=== PATIENT | female | born 1935 | race Caucasian/White ===

== ENCOUNTER 2023-03-15 11:03 | Emergency (ER) | payer OTHER, MEDICARE ==
[~2023-03-15] VITALS: Ht 152.4 cm; Wt 50.8 kg
[~2023-03-15 11:03] MED LIST: Percocet 5-3251 EACH PO
[2023-03-15 15:30] VITALS: BP 147/97
[2023-03-15] MEDS ORDERED: Percocet 5-3251 EACH PO (17:59)
== END 2023-03-15 18:36 | disposition home or self-care (01) ==
LOC: ER 11:03
DX: S70.02XA Contusion of left hip, initial encounter (principal); S90.02XA Contusion of left ankle, initial encounter; R53.1 Weakness; W01.10XA Fall on same level from slipping, tripping and stumbling with subsequent striking against unspecified object, initial encounter; Z88.1 Allergy status to other antibiotic agents; Z91.013 Allergy to seafood
CPT/HCPCS: 72192; 73502; 73610; 96374; 96376; 99284-25; A9270; J2270

== ENCOUNTER 2023-03-22 15:52 | Inpatient (IN) | payer MEDICARE, OTHER ==
[~2023-03-22] VITALS: Ht 154.9 cm; Wt 50.8 kg
[2023-03-22 16:45] LABS: BASOPHILS ABSOLUTE AUTO 0.03 K/mm3 (0.00-0.23); BASOPHILS PERCENT AUTO 1 % (0-2); EOSINOPHILS ABSOLUTE AUTO 0.08 K/mm3 (0.00-0.68); EOSINOPHILS PERCENT AUTO 1 % (0-6); Hematocrit 41.7 % (33.0-51.0); IMMATURE GRAN ABSOLUTE AUTO 0.01 K/mm3 (0.00-0.10); IMMATURE GRAN PERCENT AUTO 0 % (0-1); LYMPHOCYTES ABSOLUTE AUTO 0.82 K/mm3 (0.84-5.20); LYMPHOCYTES PERCENT AUTO 14 % (21-46); MONOCYTES ABSOLUTE AUTO 0.53 K/mm3 (0.16-1.47); MONOCYTES PERCENT AUTO 9 % (4-13); Mean Corpuscular HGB 32.5 pg (26.0-34.0); Mean Corpuscular HGB Conc 33.6 g/dL (31.5-36.5); Mean Corpuscular Volume 97 fL (80-100); Mean Platelet Volume 10.7 fL (9.1-12.4); NEUTROPHILS PERCENT AUTO 75 % (41-73); Platelet Count 202 K/mm3 (150-400); RDW Coefficient Variation 11.7 % (11.7-14.2); RDW Standard Deviation 42.4 fL (35.1-46.3); Red Blood Cell Count 4.31 M/mm3 (3.80-5.20); White Blood Cell Count 5.87 K/mm3 (4.00-11.30)
[2023-03-22 17:10] LABS: Bun/Creatinine Ratio 24.4 (12.0-20.0); Calcium, Blood 9.3 mg/dL (8.5-10.1); Creatinine, Blood 0.49 mg/dL (0.40-1.00)
[2023-03-22 17:19] LABS: International Normalized Ratio 0.95
--- NOTE | 2023-03-22 18:58 | NUR ---
SHIFT SUMMARY: ASSUMED CARE OF PATIENT UPON HER ARRIVAL FROM ER AT 1825. TRANSFERRED FROM [facility] TO BED WITH MAX ASSIST. PAIN WELL CONTROLLED AT THIS TIME. ORTHO CONSULT CALLED IN TO DR. DUMONT'S OFFICE. STRICT BEDREST, PUREWICK IN PLACE FOR URINE. SKIN INTACT, SLIGHT BRUISING ON L TROCHANTER. IS AWARE OF NPO STATUS AFTER MN.
[2023-03-22 19:40] VITALS: BP 140/57
[2023-03-23 02:08] VITALS: BP 155/64
--- NOTE | 2023-03-23 04:20 | NUR ---
SHIFT SUMMARY 87 YR F ADMITTED ON 03/22/23 FOR LEFT FEMUR/HIP FX. DNR. PT HAS HAD FAMILY AT BEDSIDE FOR MOST OF THIS SHIFT AND SHE APPEARS TO BE IN GOOD SPIRITS. SHE C/O PAIN @ 7 BUT TOLERATES IT WELL. PAIN MEDS GIVEN PER EMAR. ALEXI IN PLACE AND WORKING WELL. SHE IS SCHEDULED FOR SURGERY THIS A.M. AND HAS BEEN NPO SINCE MIDNIGHT.
--- NOTE | 2023-03-23 05:42 | NUR ---
ASSUMED CARE OF PT @ 0500. PT DX IS L FEMUR FX. PT IS NPO FOR POSSIBLE SURGERY. PT HAS ORTHO CONSULT SCHEDULED FOR TODAY. PT HAS PUREWICK IN PLACE.PT IS CURRENTLY RESTING WITH BED ALARM ON, BED IN LOWEST POSITION, AND CALL LIGHT WIHTIN REACH.
[2023-03-23 07:09] VITALS: BP 150/69
[2023-03-23 16:10] VITALS: BP 110/49
[2023-03-23 16:15] VITALS: BP 135/69
--- NOTE | 2023-03-23 18:37 | NUR ---
SHIFT SUMMARY: PATIENT A&OX4. CALM, PLEASANT AND COOPERATIVE c CARE USES CALL LIGHT APPROPRIATELY AND ABLE TO MAKE NEEDS KNOWN. PATIENT REPORTS PAIN 5-8/10 TO LEFT HIP. MEDICATED X2 c 25 MG OF IV FENTANYL AND 15 MG OF IV TORADOL THIS SHIFT. PATIENT REPORTS GOOD RELIEF. DR. GRIDER (ORTHO SURGEON) CAME IN FOR CONSULT THIS AM AND SPOKE c PATIENT AND FAMILY c THE PLAN OF CARE. PER DR. DUMONT TO HAVE PATIENT NPO AT HI FOR POSSIBLE SURGERY TO L HIP TOMORROW. CONTINENCE OF URINE AND STOOL AND USES BEDPAN T/O SHIFT. VITAL SIGNS REVIEWED. CALL LIGHT IN REACH.
[2023-03-23 19:52] VITALS: BP 136/66
[2023-03-24 03:42] VITALS: BP 149/64
--- NOTE | 2023-03-24 03:51 | NUR ---
SHIFT SUMMARY NOC PT A/O X 4. FORGETFUL AND CONFUSED AT TIMES. PT HAD C/O OF PAIN IN L HIP AND WAS MEDICATED PER EMAR. PT HAS L HIP JAVIER ARTHROPLASTY SURGERY SCHEDULED FOR AFTERNOON TODAY FOR PROTHESIS PLACEMENT. DAUGHTER STAYED NIGHT IN ROOM. PT 2 DAUGHTERS ARE HEALTHCARE POA FOR PT AND WANT TO BE INFORMED OF ANY ADDITIONAL DECESIONS THAT NEED TO BE MADE ON BEHALF OF PT (POA LETTER AND CONTACT INFO ON FRONT OF PT CHART IN BOX). PT HAS BEEN NPO SINCE MIDNIGHT WITH LR INFUSING @ 100 MLS/HR IN PREPARATION FOR SURGICAL PROCEDURE. PUREWICK STILL IN PLACE DRAINING YELLOW URINE TO SUCTION. PT IS CURRENTLY RESTING WITH BED IN LOWEST POSITION, AND CALL LIGHT WITHIN REACH.
[2023-03-24 05:17] LABS: BASOPHILS ABSOLUTE AUTO 0.04 K/mm3 (0.00-0.23); BASOPHILS PERCENT AUTO 1 % (0-2); EOSINOPHILS ABSOLUTE AUTO 0.18 K/mm3 (0.00-0.68); EOSINOPHILS PERCENT AUTO 3 % (0-6); Hematocrit 35.3 % (33.0-51.0); Hemoglobin 11.7 g/dL (11.5-16.0); IMMATURE GRAN ABSOLUTE AUTO 0.01 K/mm3 (0.00-0.10); IMMATURE GRAN PERCENT AUTO 0 % (0-1); LYMPHOCYTES ABSOLUTE AUTO 1.31 K/mm3 (0.84-5.20); LYMPHOCYTES PERCENT AUTO 24 % (21-46); MONOCYTES ABSOLUTE AUTO 0.53 K/mm3 (0.16-1.47); MONOCYTES PERCENT AUTO 10 % (4-13); Mean Corpuscular HGB Conc 33.1 g/dL (31.5-36.5); Mean Corpuscular Volume 96 fL (80-100); Mean Platelet Volume 11.1 fL (9.1-12.4); NEUTROPHILS PERCENT AUTO 61 % (41-73); Platelet Count 210 K/mm3 (150-400); RDW Coefficient Variation 11.8 % (11.7-14.2); RDW Standard Deviation 42.2 fL (35.1-46.3); Red Blood Cell Count 3.66 M/mm3 (3.80-5.20); White Blood Cell Count 5.37 K/mm3 (4.00-11.30)
[2023-03-24 05:37] LABS: Albumin, Blood 2.6 g/dL (3.4-5.0); Anion Gap 1 mmol/L (6-16); Blood Urea Nitrogen 20 mg/dL (8-24); Bun/Creatinine Ratio 39.5 (12.0-20.0); CO2, Blood 29 mmol/L (21-32); Calcium, Blood 8.8 mg/dL (8.5-10.1); Chloride, Blood 109 mmol/L (98-108); Creatinine, Blood 0.51 mg/dL (0.40-1.00); Glomerular Filtration Rate 90 (60-); Glucose, Blood 107 mg/dL (70-99); Phosphorus, Blood 3.1 mg/dL (2.5-4.9); Potassium, Blood 4.1 mmol/L (3.5-5.5); Sodium, Blood 139 mmol/L (136-145)
[2023-03-24 07:23] VITALS: BP 159/54
--- NOTE | 2023-03-24 08:04 | NUR ---
pt laying in bed with family at bedside, a/ox3, pleasant and cooperative with care, follows commands well, denies pain at this time, asked her to let us know if has pain, lungs are clear t/o, resp even and unlabored, no cough noted, hrr, loud murmur noted, no edema noted, ppp faint, cap refill <3 sec, vs stable, afebrile, piv sites are clear and patent, btx4, abd flat soft nontender, purwick in place to avoid moving pt, as that causes pain, skin c/w/d, kacey yuen, call light in reach. plan is for surg repair today.
--- NOTE | 2023-03-24 12:43 | NUR ---
pt has been transfered to surgical floor via bed, report given to Jeni AGUIRRE, all belongings were taken to 220 with pt. family in attendence.
[2023-03-24 16:13] VITALS: BP 155/64
--- NOTE | 2023-03-24 17:51 | NUR ---
SHIFT SUMMARY PT A&OX4, VSS/RA, SHANTHI PO, VOIDING/PUREWICK TO SUX 400 MLS TODAY, BEDREST, PAIN MANAGED PER EMAR, DAUGHTER AT BEDSIDE. PLAN FOR NPO 0005/O.R. TOMORROW. WILL REPORT TO ONCOMING NOC RN.
[2023-03-24 19:21] VITALS: BP 125/64
[2023-03-25 03:53] VITALS: BP 150/61
--- NOTE | 2023-03-25 05:52 | NUR ---
SHIFT SUMMARY PT IS HERE W/ A LEFT SIDED HIP FX. SHE HAS BEEN NPO SINCE 0000 AND SURGICAL INFECTION PREVENTION WAS DONE AT ABOUT 0030. DAUGHTER HAS BEEN AT THE BEDSIDE ALL NIGHT AND HAS HELPED THE PT CALL FOR ANY NEEDS. SHE HAS NOT COMPLAINED OF ANY PAIN AND HAS NOT BEEN GIVEN ANY PRN MEDICATIONS. PT HAS VOIDED THIS SHIFT USING OUR PURWICK, AND HER URINE IS YELLOW W/O ANY ODORS. PURWICK HAS BEEN CHANGED THIS SHIFT. SHE HAS BEEN BEDREST AND Q2 TURN. SHE IS A&OX4, AND HAS DENIED ANY N/V/D. HER BED IS IN LOW, CALL LIGHT IN REACH, AND BED ALARM IS ON. SEE NOTES FOR ANY UPDATES.
[2023-03-25 07:29] VITALS: BP 147/71
[2023-03-25 12:09] VITALS: BP 176/79
--- NOTE | 2023-03-25 12:19 | NUR ---
THE PATIENT WAS BROUGHT TO DAY SURGERY FOR HER PROCEDURE.
--- NOTE | 2023-03-25 14:00 | NUR ---
THE PATIENT'S PROCEDURE WAS CANCELLED FOR A CARDIAC CONSULT. THE ORDERS WERE PLACED AND THE PATIENT WAS RETURNED TO HER ROOM.
--- NOTE | 2023-03-25 19:30 | NUR ---
SHIFT SUMMARY PT A/OX2-3 SOME CONFUSION, DAUGHTERS AT BEDSIDE, PLEASANT & COOPERATIVE. SHANTHI PO, VOIDING/NEW PUREWICK PLACED 800 MLS OUT, PAIN MANAGED, REPOSITIONS WITH ASSIST/BEDPAN-BM TODAY. REPORT TO REINIER AGUIRRE.
[2023-03-25 20:44] VITALS: BP 152/56
[2023-03-26 04:57] VITALS: BP 159/69
--- NOTE | 2023-03-26 05:02 | NUR ---
SHIFT SUMMARY VSS, PT NOTED TO HAVE HTN. PT REMAINS ASYMPTOMATIC. PT APPEARS MORE CONFUSED THIS AM, UNABLE TO RECALL WHERE SHE IS OR WHY SHE IS IN THE HOSPITAL. SHE IS ABLE TO IDENTIFY HERSELF AND HER DAUGHTER, BUT NOTHING ELSE. PT IS PULLING AT LINES AND UNDRESSING HERSELF, PT IS UNABLE TO UNDERSTAND WHY SHE DID THIS. PT HAS BEEN VOIDING W/O DIFFICULTY, PURE WICK REMOVED D/T PT PULLING IT OUT. NPO THIS AM AT 0500 A PRECAUTION FOR POSSIBLE SURGERY, THOUGH IT IS UNLIKELY. DAUGHTER HAS REMAINED AT BEDSIDE T/O THE NIGHT. PT SLEPT ON AND OFF. MEDICATED FOR PAIN ONCE WITH TORADOL AND TYLENOL. PT HAS BEEN TOLLERATED PO INTAKE W/O N/V, HAVING BM'S, PASSING FLATTUS, AND PARTICIPATING IN CARE. NO ACUTE EVENTS T/O THE NIGHT. PLAN FOR DR CUEVAS TO ROUND THIS AM AND DISCUSS PLAN OF CARE. THE PATIENT IS CURRENTLY RESTING, IN NO DISTRESS, CALL LIGHT IN REACH
[2023-03-26 07:21] VITALS: BP 179/74
--- NOTE | 2023-03-26 12:23 | NUR ---
TRANSFER PROGRESS SPOKE WITH DR PARIKH. [facility] AND [facility] HAVE PLACED PATIENT ON WAIT LISTS. FACE SHEETS AND IMAGES HAVE BEEN FAXED AND ELECTRONICALLY PUSHED TO BOTH FACILITIES. PATIENT AND DAUGHTER UPDATED.
[2023-03-26 15:16] VITALS: BP 165/72
--- NOTE | 2023-03-26 16:13 | NUR ---
SHIFT SUMMARY PT REMAINS AWAITING TRANSFER TO DIFFERENT FACILITY FOR SURGERY. SHE REPORTS PAIN TOLERABLE AND DENIES NEED FOR MEDICATION. DAUGHTER AT BEDSIDE HELPING WITH CARE, PT CALLS TO MAKE HER NEEDS MET. TOLERATING DIET WELL, PUREWICK IN PLACE FOR VOIDING.
[2023-03-26 19:58] VITALS: BP 191/79
[2023-03-26 20:11] VITALS: BP 191/79
--- NOTE | 2023-03-26 21:41 | NUR ---
TRANSFER CALL PLACED TO [facility] AND REPORT GIVEN TO NURSE MELLO, WHO IS TAKING THIS PATIENT. REPORT COMPLETED, RECIEVING NURSE HAD NO FURTHER QUESTION. TRANSPORT ARRIVED AND REPORTS GIVEN. PATIENT AND FAMILY EDUATED ON TRANSFER AND PLAN OF CARE. PT MEDICATED WITH NIGHT TIME MEDS AND TORADOL FOR PAIN CONTROL. PT PLACED INTO CLEAN BRIEF FOR TRANSFER AND PUT ONTO STRETCHER. PT LEFT THE FLOOR IN NO DISTRESS, PAIN MANAGED, AND WITH NO FURTHER QUESTIONS. PT LEFT THE FLOOR AT 2110.
== END 2023-03-26 21:14 | disposition short-term general hospital (02) | DRG 536 ==
LOC: ER 15:52 → MEDS 17:55 → SURS 17:55 → ER 18:21 → MEDS 18:41 → SURS 03-24 12:35
PROVIDERS: Family Medicine; Student in an Organized Health Care Education/Training Program; ADMIT Hospitalist
DX: S72.012A Unspecified intracapsular fracture of left femur, initial encounter for closed fracture (principal); Z66 Do not resuscitate; M19.90 Unspecified osteoarthritis, unspecified site; I05.0 Rheumatic mitral stenosis; I10 Essential (primary) hypertension; Z98.890 Other specified postprocedural states; Z88.1 Allergy status to other antibiotic agents; Z91.013 Allergy to seafood; Z79.891 Long term (current) use of opiate analgesic; W18.30XA Fall on same level, unspecified, initial encounter; Y93.01 Activity, walking, marching and hiking; Y92.002 Bathroom of unspecified non-institutional (private) residence as the place of occurrence of the external cause
CPT/HCPCS: 36415; 73502; 73552; 80048; 80069; 82947; 85025; 85610; 85730; 86850; 86900; 86901; 93005; 93010; 93306; 96374; 97110; 97112; 97162; 97530; 99284-25; A9270; J1170; J1644; J1885; J2704; J3010; J7120